=== PATIENT | female | born 1985 | race African-American/Black ===

== ENCOUNTER 2023-06-01 22:41 | Emergency (ER) | payer OTHER ==
[~2023-06-01] VITALS: Ht 162.6 cm; Wt 104.5 kg
[2023-06-01 22:47] VITALS: BP 137/94; PULSE 105; RESP 19; TEMP 97.4; O2SAT 100
[2023-06-02] MEDS: HYDROCODONE/ACETAMINOPHEN 5/325MG TABLET PO STA (00:34)
[2023-06-02] MEDS ORDERED: NAPR-681 PO (00:59)
== END 2023-06-02 01:34 | disposition home or self-care (01) ==
LOC: ER 22:41
DX: M79.604 Pain in right leg (principal); M25.561 Pain in right knee; Z98.51 Tubal ligation status; W18.39XA Other fall on same level, initial encounter; Y93.89 Activity, other specified; Y92.89 Other specified places as the place of occurrence of the external cause; Y99.8 Other external cause status
CPT/HCPCS: 73562; 73590; 99284; Z7610 ×3